=== PATIENT | female | born 1975 | race Asian ===

== ENCOUNTER → 2019-01-06 | Outpatient (CLI) | payer OTHER ==
[~2019-01-06] MED LIST: PREDNISONE 20 M20 M1 PO; PREDNISONE 20 M20 MG PO; YAZ
== END ==
LOC: CAT 12:09
DX: Z13.6 Encounter for screening for cardiovascular disorders (principal); E78.00 Pure hypercholesterolemia, unspecified; I25.10 Atherosclerotic heart disease of native coronary artery without angina pectoris